=== PATIENT | female | born 1955 | race Caucasian/White ===

== ENCOUNTER → 2016-09-08 | Outpatient (CLI) | payer OTHER ==
[~2016-09-08] MED LIST: ACET500T76 PO; ERGO500017 PO; FEBU80TA2 PO; FLUT1DIS3 INH; FURO-93 PO; GABA600T2 PO; LEVO100T5 PO; LEVO75TA5 PO; LORA10TA75 PO; MAGN400T7 PO; METF500T4 PO; MONT10TA6 PO; MULT-658 PO; OXYC10TA6 PO; OXYC15TA75 PO; OXYC30TA66 PO; PANT40TA3 PO; RIZA5TAB2 PO; SERT50TA PO; SOTA80TA PO; SPIR100T PO; WARF2.5T PO; WARF2TAB7 PO
== END | disposition home or self-care (01) ==
LOC: CVU 14:57
PROVIDERS: ATTEND Physician Assistant Medical
DX: I50.30 Unspecified diastolic (congestive) heart failure (principal); I34.0 Nonrheumatic mitral (valve) insufficiency; I48.91 Unspecified atrial fibrillation; I35.0 Nonrheumatic aortic (valve) stenosis; J45.909 Unspecified asthma, uncomplicated; E11.9 Type 2 diabetes mellitus without complications; I51.7 Cardiomegaly
CPT/HCPCS: 93306

== ENCOUNTER 2016-12-01 15:22 | Emergency (ER) | payer OTHER ==
[~2016-12-01] VITALS: Ht 172.7 cm; Wt 125.0 kg
[~2016-12-01 15:22] MED LIST changes: +ACET500T71 PO; -ACET500T76 PO
[2016-12-01] MEDS ORDERED: ASPIRIN 81 MG TABLET CHEW ONE (15:52)
[2016-12-01] MEDS ORDERED: DILTIAZEM 5 MG/ML, 5ML ONE (15:52)
[2016-12-01] MEDS ORDERED: ASPIRIN 81 MG TABLET CHEW PO ONE (16:00)
[2016-12-01] MEDS ORDERED: DILTIAZEM 5 MG/ML, 5ML IVPush ONE (16:00)
[2016-12-01 16:04] LABS: BLOOD UREA NITROGEN 10 mg/dL (7-18)
[2016-12-01 16:10] LABS: IS PT STATUS REG ER OR PRE ER? YES
[2016-12-01] MEDS ORDERED: PROPOFOL 10 MG/ML, 20ML ONE (16:11)
[2016-12-01] MEDS ORDERED: LORazepam 2 MG/ML, 1ML ONE (16:17)
[2016-12-01] MEDS ORDERED: PROPOFOL 10 MG/ML, 20ML IVPush ONE (16:30)
[2016-12-01] MEDS ORDERED: LORazepam 2 MG/ML, 1ML IVPush ONE (16:30)
[2016-12-01 17:58] VITALS: BP 108/57
== END 2016-12-01 18:01 | disposition home or self-care (01) ==
LOC: ED 17:58
DX: I48.92 Unspecified atrial flutter (principal); E87.1 Hypo-osmolality and hyponatremia; I48.91 Unspecified atrial fibrillation; R73.9 Hyperglycemia, unspecified
CPT/HCPCS: 36415; 71010; 80048; 82040; 83735; 84484; 85025; 85610; 93005; 99152; 99153; J2704

== ENCOUNTER → 2016-12-22 | Outpatient (CLI) | payer OTHER ==
[~2016-12-22] MED LIST changes: +FLUT1AER INH; +INSU100C SQ-INSULIN; +INSU100V8 SQ; +LEVA15HF2 INH; +OMNIPAQUE 350 MG/ML, 150 ML BOTTLE ONE
== END | disposition home or self-care (01) ==
LOC: CFH 14:18
PROVIDERS: ATTEND Internal Medicine Cardiovascular Disease
DX: I48.91 Unspecified atrial fibrillation (principal); J81.1 Chronic pulmonary edema; I51.7 Cardiomegaly; I87.8 Other specified disorders of veins
CPT/HCPCS: 71020; 75572; Q9967

== ENCOUNTER 2016-12-23 06:51 | Observation (INO) | payer OTHER ==
[2016-12-22 13:13] VITALS: BP 129/75
[2016-12-22 14:00] LABS: HEMATOCRIT 38.8 % (34.6-47.8); HEMOGLOBIN 11.9 g/dL (11.7-16.4); WHITE BLOOD COUNT 10.4 x10^3/uL (3.4-10)
[2016-12-22 14:11] LABS: ASPARTATE AMINO TRANSFERASE 65 U/L (15-37); BLOOD UREA NITROGEN 8 mg/dL (7-18)
[~2016-12-23] VITALS: Ht 172.7 cm; Wt 126.8 kg
[~2016-12-23 06:51] MED LIST changes: -FLUT1AER INH; -INSU100C SQ-INSULIN; -INSU100V8 SQ; -LEVA15HF2 INH; -OMNIPAQUE 350 MG/ML, 150 ML BOTTLE ONE
[2016-12-23] MEDS ORDERED: SODIUM CHLORIDE 0.9% 1,000 ML IV SCH (07:15)
[2016-12-23] MEDS ORDERED: SODIUM CHLORIDE 0.9% 1,000 ML IV ONE (07:30)
[2016-12-23] MEDS ORDERED: FLUT1AER INH (07:52)
[2016-12-23] MEDS ORDERED: FENTANYL PF 250 MCG/5ML ONE ×2 (07:52→08:42)
[2016-12-23] MEDS ORDERED: LEVA15HF2 INH (07:52)
[2016-12-23] MEDS ORDERED: MIDAZOLAM 1 MG/ML, 5ML ONE (07:53)
[2016-12-23] MEDS ORDERED: LIDOCAINE 2%, 20ML ONE (07:53)
[2016-12-23] MEDS ORDERED: INSU100V8 SQ (07:54)
[2016-12-23] MEDS ORDERED: INSU100C SQ-INSULIN (07:54)
[2016-12-23] MEDS ORDERED: DEXAMETHASONE 4 MG/ML, 5ML ONE (07:59)
[2016-12-23] MEDS ORDERED: SUCCINYLCHOLINE 20 MG/ML, 10ML ONE (07:59)
[2016-12-23] MEDS ORDERED: ONDANSETRON 2MG/ML, 2ML ONE (07:59)
[2016-12-23] MEDS ORDERED: PROPOFOL 10 MG/ML, 20ML ONE (07:59)
[2016-12-23] MEDS ORDERED: ALBUTEROL SULFATE 200 PUFFS/8.5 GR INH ONE (07:59)
[2016-12-23] MEDS ORDERED: ROCURONIUM 10 MG/ML ONE (07:59)
[2016-12-23] MEDS ORDERED: PHENYLEPHRINE 10 MG/ML ONE (07:59)
[2016-12-23] MEDS ORDERED: PROTAMINE SULFATE 10 MG/ML, 5ML ONE (11:01)
[2016-12-23] MEDS ORDERED: ACETAMINOPHEN 500 MG TABLET PO SCH (11:30)
[2016-12-23] MEDS ORDERED: ALBUTEROL SULFATE 2.5 MG/3 ML NPPB PRN ×2 (11:30→12:00)
[2016-12-23] MEDS ORDERED: LORATADINE 10 MG TABLET PO PRN (11:30)
[2016-12-23] MEDS ORDERED: RIZATRIPTAN BENZOATE 5 MG PO SCH (11:30)
[2016-12-23] MEDS ORDERED: ACETAMINOPHEN 325 MG TABLET PO PRN ×2 (11:30→12:00)
[2016-12-23] MEDS ORDERED: ZOLPIDEM 5MG TABLET PO PRN (11:30)
[2016-12-23] MEDS ORDERED: ERGOCALCIFEROL 50,000 UNIT CAPSULE PO SCH (11:30)
[2016-12-23] MEDS ORDERED: OXYcodone 5 MG/5 ML ORAL.SOL UDC PO PRN (12:00)
[2016-12-23] MEDS ORDERED: MIDAZOLAM 1 MG/ML, 2ML IV PRN (12:00)
[2016-12-23] MEDS ORDERED: hydrALAzine 20 MG/ML, 1ML IV PRN (12:00)
[2016-12-23] MEDS ORDERED: FENTANYL PF 100 MCG/2ML IV PRN (12:00)
[2016-12-23] MEDS ORDERED: MEPERIDINE/PF 25MG/0.5ML IVPush PRN (12:00)
[2016-12-23] MEDS ORDERED: ONDANSETRON 2MG/ML, 2ML IVPush PRN (12:00)
[2016-12-23] MEDS ORDERED: LABETALOL 5MG/ML, 20ML IV PRN (12:00)
[2016-12-23] MEDS ORDERED: PROMETHAZINE 25 MG/ML, 1ML IV PRN (12:00)
[2016-12-23] MEDS ORDERED: HYDROmorphone 1 MG/ML, 1ML ONE (13:01)
[2016-12-23] MEDS ORDERED: OXYcodone 5 MG/5 ML ORAL.SOL UDC ONE (13:01)
[2016-12-23] MEDS ORDERED: ACETAMINOPHEN 325 MG TABLET ONE (13:01)
[2016-12-23] MEDS: HYDROmorphone 1 MG/ML, 1ML IV PRN ×2 (13:10→13:19)
[2016-12-23] MEDS ORDERED: WARFARIN 5 MG TABLET PO-COUM ONE (14:00)
[2016-12-23] MEDS ORDERED: INSULIN ASPART 100 UNITS/ML, PEN SQ-INSULIN SCH (16:00)
[2016-12-23 20:55] VITALS: BP 99/65
[2016-12-23] MEDS ORDERED: WARFARIN 2 MG TABLET PO-COUM SCH (21:00)
[2016-12-23] MEDS: INSULIN DETEMIR 100 UNITS/ML, PEN SQ-INSULIN SCH ×2 (21:00→22:08)
[2016-12-23] MEDS ORDERED: PANTOPROZOLE 40MG TABLET PO SCH (21:00)
[2016-12-23] MEDS ORDERED: FLUTICASONE/VILANTEROL 100-25MCG/INH INH SCH (21:00)
[2016-12-23] MEDS ORDERED: FEBUXOSTAT 80 MG HOMEMEDPO SCH (21:00)
[2016-12-23] MEDS ORDERED: MONTELUKAST 10 MG TABLET PO SCH (21:00)
[2016-12-23] MEDS: metFORMIN 500 MG TABLET PO SCH (22:04)
[2016-12-23] MEDS: GABAPENTIN 300 MG CAPSULE PO SCH (22:13)
[2016-12-23] MEDS: OXYcodone IR 5MG TABLET PO PRN (22:46)
[2016-12-23] MEDS: INSULIN ASPART 100 UNITS/ML, PEN SQ-INSULIN SCH (22:46)
[2016-12-24 02:35] VITALS: BP 107/70
[2016-12-24] MEDS: OXYcodone IR 5MG TABLET PO PRN (04:54)
[2016-12-24 07:25] VITALS: BP 100/64
[2016-12-24] MEDS ORDERED: MULTIVITAMIN 1 TABLET PO SCH (09:00)
[2016-12-24] MEDS ORDERED: FLUTICASONE/VILANTEROL 100-25MCG/INH INH SCH (09:00)
[2016-12-24] MEDS ORDERED: LEVOTHYROXINE 100 MCG TABLET PO SCH (09:00)
[2016-12-24] MEDS ORDERED: FUROSEMIDE 20 MG TABLET PO SCH (09:00)
[2016-12-24] MEDS ORDERED: MAGNESIUM OXIDE 400 MG TABLET PO SCH (09:00)
[2016-12-24] MEDS ORDERED: SPIRONOLACTONE 100 MG TABLET PO SCH (09:00)
[2016-12-24] MEDS: metFORMIN 500 MG TABLET PO SCH (09:04)
[2016-12-24] MEDS: GABAPENTIN 300 MG CAPSULE PO SCH (09:06)
[2016-12-24] MEDS: INSULIN ASPART 100 UNITS/ML, PEN SQ-INSULIN SCH (09:07)
== END 2016-12-24 12:15 | disposition home or self-care (01) ==
LOC: CACL 06:51 → ORIP 11:19 → 5SO 14:15
PROVIDERS: ADMIT Internal Medicine Cardiovascular Disease; ATTEND Internal Medicine Cardiovascular Disease
DX: I48.91 Unspecified atrial fibrillation (principal); I48.92 Unspecified atrial flutter
CPT/HCPCS: 36415; 80053; 82962; 85025; 85610; 85730; 93005; 93308; 93312; 93321; 93325; 93613; 93624; 93655; 93656; 93662; 96372; C1730; C1731; C1732; C1766; C1893; C1894; G0378; J0330; J1100; J1170; J1815; J2250; J2370; J2405; J2704; J2720; J3010; J3490

== ENCOUNTER → 2017-12-08 | Outpatient (CLI) | payer OTHER ==
[~2017-12-08] MED LIST changes: +FLUT1AER INH; +INSU100C SQ-INSULIN; +INSU100V8 SQ; +LEVA15HF4 INH; -METF500T4 PO; +METF500T5 PO; +REGADENOSON 0.4 MG/5 ML SYRINGE ONE; -WARF2TAB7 PO; +WARF2TAB99 PO
== END | disposition home or self-care (01) ==
LOC: CFH 12:28
PROVIDERS: ATTEND Internal Medicine Cardiovascular Disease
DX: I20.9 Angina pectoris, unspecified (principal); I45.10 Unspecified right bundle-branch block
CPT/HCPCS: 78452; A9502; C9898; J2785

== ENCOUNTER 2018-01-24 22:05 | Inpatient (IN) | payer OTHER ==
[~2018-01-24] VITALS: Ht 172.7 cm; Wt 146.0 kg
[~2018-01-24 22:05] MED LIST changes: +METF500T17 PO; -METF500T5 PO; -REGADENOSON 0.4 MG/5 ML SYRINGE ONE
[2018-01-24 22:42] LABS: MEAN CORPUSCULAR HEMOGLOBIN 20.9 pg (27.0-34.8); MEAN CORPUSCULAR HGB CONC 30.6 g/dL (32.4-35.8); MEAN CORPUSCULAR VOLUME 68.3 fL (80-100); MEAN PLATELET VOLUME 8.2 fL (7.4-10.4); PLATELET COUNT 369 x10^3/uL (130-400); RED BLOOD COUNT 3.56 x10^6/uL (3.82-5.3); RED CELL DISTRIBUTION WIDTH 23.1 % (9.6-15.2)
[2018-01-24 22:51] LABS: INTERNATIONAL NORMALIZED RATIO 2.63 (0.93-1.1); PROTHROMBIN TIME 26.8 Seconds (9.6-11.5)
[2018-01-24 22:59] LABS: BASOPHILS # (AUTO) 0.14 x10^3/uL (0-0.1); BASOPHILS % (AUTO) 2 % (0-1); EOSINOPHILS # (AUTO) 0.09 x10^3/uL (0-0.4); EOSINOPHILS % (AUTO) 1 % (1-7); LYMPHOCYTES % (AUTO) 20 % (22-44); MD SCAN; MONOCYTES # (AUTO) 0.68 x10^3/uL (0.2-0.8); MONOCYTES % (AUTO) 9 % (2-9); NEUTROPHILS # (AUTO) 5.03 x10^3/uL (1.8-6.8); NEUTROPHILS % (AUTO) 68 % (42-75)
[2018-01-24] MEDS ORDERED: CHOL100015 PO (23:04)
[2018-01-24] MEDS ORDERED: METF500T17 PO (23:04)
[2018-01-24] MEDS ORDERED: WARF2.5T PO (23:04)
[2018-01-24] MEDS ORDERED: BREO (23:04)
[2018-01-24] MEDS ORDERED: OXYCODONE PO ×2 (23:04)
[2018-01-24] MEDS ORDERED: RIZA10TA20 PO (23:04)
[2018-01-24] MEDS ORDERED: TRESIBA (23:04)
[2018-01-24] MEDS ORDERED: LEVA15HF4 INH (23:04)
[2018-01-24] MEDS ORDERED: NOVALOG SQ (23:04)
[2018-01-24] MEDS ORDERED: PANT40TA3 PO (23:04)
[2018-01-24] MEDS ORDERED: MONT10TA6 PO (23:04)
[2018-01-24] MEDS ORDERED: CLON0.5T11 PO (23:04)
[2018-01-24] MEDS ORDERED: LEVO112T4 PO (23:04)
[2018-01-24] MEDS ORDERED: PROM25SU34 PO (23:04)
[2018-01-24] MEDS ORDERED: GABA600T2 PO (23:04)
[2018-01-24] MEDS ORDERED: FEBU80TA2 PO (23:04)
[2018-01-24] MEDS ORDERED: ASPIRIN 325 MG TABLET PO STA (23:22)
[2018-01-25] VITALS (15 sets, daily range): BP systolic 80–115; BP diastolic 44–70
[2018-01-25] MEDS ORDERED: POLYETHYLENE GLYCOL 17 GM PACKET PO PRN (00:30)
[2018-01-25] MEDS: INSULIN GLARGINE 100 UNITS/ML, PEN SQ-INSULIN SCH ×2 (00:30→20:12)
[2018-01-25] MEDS ORDERED: ONDANSETRON 4 MG TABLET PO PRN (00:30)
[2018-01-25] MEDS ORDERED: TEMPLATE NON-FORMULARY MED. (Levalbuterol Tartrate** (Xopenex Hfa**) 2 PUFF) INH PRN (00:30)
[2018-01-25] MEDS ORDERED: BISACODYL 10 MG SUPP PR PRN (00:30)
[2018-01-25] MEDS ORDERED: ACETAMINOPHEN 325 MG TABLET PO PRN (00:30)
[2018-01-25] MEDS ORDERED: LORATADINE 10 MG TABLET PO PRN (00:30)
[2018-01-25] MEDS: ERGOCALCIFEROL 50,000 UNIT CAPSULE PO SCH (00:30)
[2018-01-25] MEDS ORDERED: ALBUTEROL SULFATE 2.5 MG/3 ML NPPB PRN (01:00)
[2018-01-25] MEDS: INSULIN LISPRO 100 UNITS/ML, PEN SQ-INSULIN SCH ×5 (01:00→20:12)
[2018-01-25] MEDS: CLINDAMYCIN PMX 600MG/50ML 50 ML IV SCH ×3 (01:27→16:27)
[2018-01-25] MEDS: OXYcodone IR 5MG TABLET PO PRN ×5 (01:27→20:38)
[2018-01-25] MEDS: FEBUXOSTAT 40 MG TABLET PO SCH ×2 (01:43→20:09)
[2018-01-25] MEDS: GABAPENTIN 300 MG CAPSULE PO SCH ×4 (01:45→20:12)
[2018-01-25] MEDS: MONTELUKAST 10 MG TABLET PO SCH ×2 (01:45→20:12)
[2018-01-25] MEDS: PANTOPROZOLE 40MG TABLET PO SCH ×2 (01:45→20:12)
[2018-01-25] MEDS: WARFARIN 2 MG TABLET PO-COUM SCH ×2 (01:46→20:11)
[2018-01-25] MEDS ORDERED: OXYcodone IR 30 MG TABLET PO ONE (02:30)
[2018-01-25 03:02] LABS: MEAN CORPUSCULAR HEMOGLOBIN 21.6 pg (27.0-34.8); MEAN CORPUSCULAR HGB CONC 31.5 g/dL (32.4-35.8); MEAN CORPUSCULAR VOLUME 68.4 fL (80-100); MEAN PLATELET VOLUME 8.1 fL (7.4-10.4); PLATELET COUNT 362 x10^3/uL (130-400); RED BLOOD COUNT 3.43 x10^6/uL (3.82-5.3); RED CELL DISTRIBUTION WIDTH 23.4 % (9.6-15.2)
[2018-01-25 03:09] LABS: ALANINE AMINOTRANSFERASE 19 U/L (12-78); ALBUMIN 2.5 g/dL (3.4-5.0); ANION GAP 3 mmol/L (5-15); CHLORIDE 99 mmol/L (98-107); CREATININE 0.83 mg/dL (0.55-1.02)
[2018-01-25 03:11] LABS: ALKALINE PHOSPHATASE 109 U/L (45-117); BILIRUBIN,TOTAL 0.8 mg/dL (0.2-1.0); TOTAL PROTEIN 6.7 g/dL (6.4-8.2)
[2018-01-25 03:14] LABS: HEMOGLOBIN A1C 7.5 % (4.2-6.3)
[2018-01-25 03:32] LABS: BASOPHILS # (AUTO) 0.02 x10^3/uL (0-0.1); BASOPHILS % (AUTO) 0 % (0-1); EOSINOPHILS # (AUTO) 0.22 x10^3/uL (0-0.4); EOSINOPHILS % (AUTO) 3 % (1-7); LYMPHOCYTES # (AUTO) 1.48 x10^3/uL (1-3.4); LYMPHOCYTES % (AUTO) 23 % (22-44); MD SCAN; MONOCYTES # (AUTO) 0.58 x10^3/uL (0.2-0.8); MONOCYTES % (AUTO) 9 % (2-9); NEUTROPHILS # (AUTO) 4.18 x10^3/uL (1.8-6.8); NEUTROPHILS % (AUTO) 65 % (42-75)
[2018-01-25] MEDS: PROMETHAZINE 25 MG SUPP PR SCH (09:00)
[2018-01-25] MEDS: MAGNESIUM OXIDE 400 MG TABLET PO SCH (09:00)
[2018-01-25] MEDS ORDERED: TEMPLATE NON-FORMULARY MED. (Fluticasone/Salmeterol** (Advair 250-50 Diskus**) 1 PUFF) INH SCH (09:00)
[2018-01-25] MEDS: SPIRONOLACTONE 100 MG TABLET PO SCH (09:54)
[2018-01-25] MEDS: metFORMIN 500 MG TABLET PO SCH ×2 (09:54→20:12)
[2018-01-25] MEDS: FUROSEMIDE 20 MG TABLET PO SCH (09:54)
[2018-01-25] MEDS: MULTIVITAMIN 1 TABLET PO SCH (09:55)
[2018-01-25] MEDS: LEVOTHYROXINE 112 MCG TABLET PO SCH (09:55)
[2018-01-25] MEDS: ASPIRIN 81 MG TABLET CHEW PO/NG SCH (09:56)
[2018-01-25] MEDS ORDERED: ACETAMINOPHEN 325 MG TABLET PO ONE (10:30)
[2018-01-25] MEDS ORDERED: DIPHENHYDRAMINE 12.5MG/5ML, 10ML UDC PO ONE (10:30)
[2018-01-25] MEDS: FLUTICASONE/VILANTEROL 100-25MCG/INH INH SCH (10:55)
[2018-01-25] MEDS: RIZATRIPTAN 10MG TABLET PO SCH (10:56)
[2018-01-26 00:10] VITALS: BP 117/63
[2018-01-26] MEDS: CLINDAMYCIN PMX 600MG/50ML 50 ML IV SCH ×2 (00:20→08:03)
[2018-01-26] MEDS: OXYcodone IR 5MG TABLET PO PRN ×4 (00:20→12:22)
[2018-01-26 05:56] LABS: CHOL/HDL RATIO 6.5; LDL/HDL RATIO 4.3 (0.5-3.0)
[2018-01-26 07:11] VITALS: BP 125/69
[2018-01-26] MEDS: INSULIN LISPRO 100 UNITS/ML, PEN SQ-INSULIN SCH ×2 (08:01→11:30)
[2018-01-26] MEDS: FLUTICASONE/VILANTEROL 100-25MCG/INH INH SCH (08:03)
[2018-01-26] MEDS: ERGOCALCIFEROL 50,000 UNIT CAPSULE PO SCH (08:04)
[2018-01-26] MEDS: MULTIVITAMIN 1 TABLET PO SCH (08:05)
[2018-01-26] MEDS: LEVOTHYROXINE 112 MCG TABLET PO SCH (08:05)
[2018-01-26] MEDS: metFORMIN 500 MG TABLET PO SCH (08:05)
[2018-01-26] MEDS: SPIRONOLACTONE 100 MG TABLET PO SCH (08:05)
[2018-01-26] MEDS: RIZATRIPTAN 10MG TABLET PO SCH (08:06)
[2018-01-26] MEDS: MAGNESIUM OXIDE 400 MG TABLET PO SCH (08:06)
[2018-01-26] MEDS: ASPIRIN 81 MG TABLET CHEW PO/NG SCH (08:07)
[2018-01-26] MEDS: GABAPENTIN 300 MG CAPSULE PO SCH (08:07)
[2018-01-26] MEDS: FUROSEMIDE 20 MG TABLET PO SCH (08:08)
[2018-01-26] MEDS: PROMETHAZINE 25 MG SUPP PR SCH (08:08)
[2018-01-26 10:47] LABS: INTERNATIONAL NORMALIZED RATIO 2.56 (0.93-1.1); PROTHROMBIN TIME 26.1 Seconds (9.6-11.5)
[2018-01-26] MEDS ORDERED: CEFD300C37 PO (11:00)
[2018-01-26 14:24] VITALS: BP 97/59
== END 2018-01-26 15:51 | disposition home or self-care (01) | DRG 69 ==
LOC: ED 23:01 → EDIP 23:12 → 4WST 01-25 00:18
PROVIDERS: ADMIT Family Medicine; ATTEND Family Medicine
PROC: 30233N1 Transfusion of Nonautologous Red Blood Cells into Peripheral Vein, Percutaneous Approach (ICD-10-PCS; principal; 2018-01-25)
PROC: 5A09357 Assistance with Respiratory Ventilation, Less than 24 Consecutive Hours, Continuous Positive Airway Pressure (ICD-10-PCS; 2018-01-25)
DX: G45.9 Transient cerebral ischemic attack, unspecified (principal); L03.116 Cellulitis of left lower limb; Z68.42 Body mass index [BMI] 45.0-49.9, adult; I50.30 Unspecified diastolic (congestive) heart failure; D68.69 Other thrombophilia; G81.94 Hemiplegia, unspecified affecting left nondominant side; D63.8 Anemia in other chronic diseases classified elsewhere; E03.9 Hypothyroidism, unspecified; E11.42 Type 2 diabetes mellitus with diabetic polyneuropathy; E55.9 Vitamin D deficiency, unspecified; E66.01 Morbid (severe) obesity due to excess calories; G47.33 Obstructive sleep apnea (adult) (pediatric); I48.91 Unspecified atrial fibrillation; K21.9 Gastro-esophageal reflux disease without esophagitis; J45.909 Unspecified asthma, uncomplicated; G56.02 Carpal tunnel syndrome, left upper limb; M19.90 Unspecified osteoarthritis, unspecified site; R47.81 Slurred speech; D50.9 Iron deficiency anemia, unspecified; M79.7 Fibromyalgia; Z96.653 Presence of artificial knee joint, bilateral; M81.0 Age-related osteoporosis without current pathological fracture; R09.02 Hypoxemia; Z80.6 Family history of leukemia; Z79.4 Long term (current) use of insulin; Z82.49 Family history of ischemic heart disease and other diseases of the circulatory system; Z88.5 Allergy status to narcotic agent; Z88.2 Allergy status to sulfonamides; Z88.7 Allergy status to serum and vaccine; Z88.8 Allergy status to other drugs, medicaments and biological substances; Z91.018 Allergy to other foods; Z82.5 Family history of asthma and other chronic lower respiratory diseases; Z83.3 Family history of diabetes mellitus; Z86.718 Personal history of other venous thrombosis and embolism; Z90.710 Acquired absence of both cervix and uterus
CPT/HCPCS: 36415; 36430; 70450; 70551; 71045; 80047; 80053; 80061; 82728; 82962; 83036; 83540; 83550; 85014; 85018; 85025; 85610; 85730; 86850; 86900; 86923; 93005; 93880; G0378; J1815; P9016

== ENCOUNTER 2018-08-26 15:04 | Inpatient (IN) | payer OTHER ==
[~2018-08-26] VITALS: Ht 172.7 cm; Wt 150.2 kg
[~2018-08-26 15:04] MED LIST changes: +BREO; +CEFD300C37 PO; +CHOL100015 PO; +CLON0.5T11 PO; -GABA600T2 PO; +GABA600T7 PO; +LEVO112T4 PO; +NOVALOG SQ; +OXYCODONE PO; +PROM25SU34 PO; +RIZA10TA20 PO; +TRESIBA
--- NOTE | 2018-08-26 15:17 | NUR ---
PT BIB EMS AFTER MECHANICAL GLF TODAY. AND SON AT BEDSIDE. STATES SHE TRIPPED OVER A RUG AT [facility] AND FELL ONTO LEFT SHOULDER. PAIN TO ANTERIOR LEFT SHOULDER RAD TO LEFT ARM AND LEFT NECK. CMS INTACT. CONNECTED TO MONITORS. VSS. EDMD ASSESSMENT COMPLETE. AWAITING ORDERS.
[2018-08-26] MEDS ORDERED: GABAPENTIN 300 MG CAPSULE PO ONE (15:30)
[2018-08-26] MEDS ORDERED: SODIUM CHLORIDE FLUSH 10ML SYR IVF ONE (15:30)
[2018-08-26] MEDS ORDERED: GABAPENTIN 300 MG CAPSULE ONE (15:32)
--- NOTE | 2018-08-26 16:02 | NUR ---
pts (pain management md) stated that pt needed an extra dose of gabapentin. md notified and orders received. ptmedicated per mar. pt states she needs to go to the restroom. pt currently "woozy" from medications and unsteady on feet. pt offered and declined bedpan until she gets more pain medication. sling being applied at this time. pt yelling out and made tech stop application of sling. pt refusing all interventions until she gets more pain medication. pt requesting and provided with ice packs. md notified. awaiting orders.
[2018-08-26] MEDS ORDERED: HYDROmorphone 1 MG/ML, 1ML VIAL ONE (16:11)
[2018-08-26] MEDS ORDERED: ONDANSETRON 2MG/ML, 2ML ONE (16:11)
[2018-08-26] MEDS ORDERED: PROMETHAZINE 25 MG/ML, 1ML ONE (16:18)
[2018-08-26] MEDS ORDERED: SODIUM CHLORIDE FLUSH 10ML SYR IVF PRN (16:30)
[2018-08-26] MEDS ORDERED: HYDROmorphone 2 MG/ML, 1ML IVPush PRN (16:30)
[2018-08-26] MEDS ORDERED: PROMETHAZINE 25 MG/ML, 1ML IM ONE (16:30)
[2018-08-26] MEDS ORDERED: ONDANSETRON 2MG/ML, 2ML IVPush ONE (16:30)
[2018-08-26 16:31] LABS: BASOPHILS # (AUTO) 0.03 x10^3/uL (0-0.1); BASOPHILS % (AUTO) 0 % (0-1); EOSINOPHILS % (AUTO) 1 % (1-7); LYMPHOCYTES % (AUTO) 16 % (22-44); MD NO; MEAN CORPUSCULAR HEMOGLOBIN 21.4 pg (27.0-34.8); MEAN CORPUSCULAR HGB CONC 30.2 g/dL (32.4-35.8); MEAN CORPUSCULAR VOLUME 70.8 fL (80-100); MEAN PLATELET VOLUME 9.4 fL (7.4-10.4); MONOCYTES # (AUTO) 0.53 x10^3/uL (0.2-0.8); MONOCYTES % (AUTO) 7 % (2-9); NEUTROPHILS # (AUTO) 5.64 x10^3/uL (1.8-6.8); NEUTROPHILS % (AUTO) 75 % (42-75); PLATELET COUNT 225 x10^3/uL (130-400); RED BLOOD COUNT 4.46 x10^6/uL (3.82-5.3); RED CELL DISTRIBUTION WIDTH 21.6 % (9.6-15.2)
--- NOTE | 2018-08-26 16:36 | NUR ---
during medication administration, pt became verbally abusive toward nurse and laboratory aide. pt requested that laboratory aide tighten coban and laboratory aide did as asked two separate times. pt then became upset with this rn, stating "What's your name? As soon as I'm better, I'm gonna punch you in the arm!" pt was told by this rn that threats to staff are unacceptable and will not be tolerated. charge account identification clerk notified and present to speak with pt. pt clearly educated that any threats are unacceptable and any further threats will be handled by security. pt medicated per mar. no further needs at this time. vss. at bedside.
[2018-08-26 16:42] LABS: ALANINE AMINOTRANSFERASE 43 U/L (12-78); ALBUMIN 3.2 g/dL (3.4-5.0); ANION GAP 4 mmol/L (5-15); CALCIUM 8.7 mg/dL (8.5-10.1); CHLORIDE 102 mmol/L (98-107); CREATININE 0.82 mg/dL (0.55-1.02)
[2018-08-26 16:45] LABS: ALKALINE PHOSPHATASE 139 U/L (45-117); BILIRUBIN,TOTAL 0.4 mg/dL (0.2-1.0); TOTAL PROTEIN 7.5 g/dL (6.4-8.2)
[2018-08-26 16:52] LABS: INTERNATIONAL NORMALIZED RATIO 2.41 (0.93-1.1); PROTHROMBIN TIME 24.5 Seconds (9.6-11.5)
[2018-08-26] MEDS ORDERED: HYDROmorphone 1 MG/ML, 1ML INJ IM PRN (17:00)
[2018-08-26] MEDS ORDERED: ERGOCALCIFEROL 50,000 UNIT CAPSULE PO SCH (17:00)
[2018-08-26] MEDS: ACETAMINOPHEN 325 MG TABLET PO SCH (17:00)
--- NOTE | 2018-08-26 17:18 | NUR ---
pt refusing more than 2L o2. pt's family has brought bipap to improve sats. report to [facility]. pt ready for transport.
[2018-08-26] MEDS: KETOROLAC 30 MG/1 ML IM PRN (18:19)
[2018-08-26] MEDS: SODIUM CHLORIDE 0.9% 1,000 ML IV SCH (18:32)
[2018-08-26 18:39] LABS: HEMOGLOBIN A1C 9.3 % (4.2-6.3)
[2018-08-26] MEDS: OXYcodone IR 5MG TABLET PO PRN (19:29)
[2018-08-26] MEDS ORDERED: MONTELUKAST 10 MG TABLET PO SCH (21:00)
[2018-08-26] MEDS ORDERED: WARFARIN 2 MG TABLET PO-COUM SCH (21:00)
[2018-08-26] MEDS ORDERED: INSULIN LISPRO 100 UNITS/ML, PEN SQ-INSULIN SCH (21:00)
[2018-08-26] MEDS ORDERED: PANTOPROZOLE 40MG TABLET PO SCH (21:00)
[2018-08-26] MEDS ORDERED: WARFARIN 2.5 MG TABLET PO-COUM SCH (21:00)
[2018-08-26] MEDS ORDERED: SENNA/DOCUSATE TABLET PO SCH (21:00)
[2018-08-26] MEDS ORDERED: FEBUXOSTAT 40 MG TABLET PO SCH (21:00)
[2018-08-26] MEDS ORDERED: WARFARIN 5 MG TABLET PO-COUM ONE (21:23)
[2018-08-26 21:41] VITALS: BP 96/68
[2018-08-26] MEDS: OXYcodone IR 5MG TABLET PO SCH (21:59)
[2018-08-26] MEDS: GABAPENTIN 300 MG CAPSULE PO SCH (22:00)
[2018-08-26] MEDS: LACTOBACILLUS CHEW TABLET PO SCH (22:01)
[2018-08-26] MEDS: INSULIN LISPRO 100 UNITS/ML, PEN SQ-INSULIN SCH (22:03)
[2018-08-27] MEDS: KETOROLAC 30 MG/1 ML IM PRN ×2 (00:21→14:43)
[2018-08-27] MEDS: ACETAMINOPHEN 325 MG TABLET PO SCH ×3 (00:22→11:40)
[2018-08-27 01:57] VITALS: BP 113/59
[2018-08-27] MEDS: SODIUM CHLORIDE 0.9% 1,000 ML IV SCH (05:03)
[2018-08-27] MEDS: OXYcodone IR 5MG TABLET PO PRN ×2 (05:04→14:44)
[2018-08-27 06:40] LABS: ANION GAP 6 mmol/L (5-15); CALCIUM 8.2 mg/dL (8.5-10.1); CHLORIDE 103 mmol/L (98-107)
[2018-08-27 06:46] LABS: % IRON SATURATION 6 % (20-55); CREATININE 0.93 mg/dL (0.55-1.02); IRON LEVEL 25 mcg/dL (50-170); TOTAL IRON BINDING CAPACITY 405 mcg/dL (250-450)
[2018-08-27 06:55] VITALS: BP 95/58
[2018-08-27 07:11] LABS: BASOPHILS # (AUTO) 0.02 x10^3/uL (0-0.1); BASOPHILS % (AUTO) 0 % (0-1); EOSINOPHILS # (AUTO) 0.17 x10^3/uL (0-0.4); EOSINOPHILS % (AUTO) 3 % (1-7); LYMPHOCYTES # (AUTO) 1.95 x10^3/uL (1-3.4); LYMPHOCYTES % (AUTO) 28 % (22-44); MD SCAN; MEAN CORPUSCULAR HEMOGLOBIN 21.9 pg (27.0-34.8); MEAN CORPUSCULAR HGB CONC 30.9 g/dL (32.4-35.8); MEAN PLATELET VOLUME 9.5 fL (7.4-10.4); MONOCYTES # (AUTO) 0.61 x10^3/uL (0.2-0.8); MONOCYTES % (AUTO) 9 % (2-9); NEUTROPHILS # (AUTO) 4.32 x10^3/uL (1.8-6.8); NEUTROPHILS % (AUTO) 61 % (42-75); PLATELET COUNT 196 x10^3/uL (130-400); RED BLOOD COUNT 4.05 x10^6/uL (3.82-5.3); RED CELL DISTRIBUTION WIDTH 22.4 % (9.6-15.2)
[2018-08-27] MEDS: LACTOBACILLUS CHEW TABLET PO SCH (08:05)
[2018-08-27] MEDS: INSULIN LISPRO 100 UNITS/ML, PEN SQ-INSULIN SCH ×2 (08:05→11:54)
[2018-08-27] MEDS: GABAPENTIN 300 MG CAPSULE PO SCH (08:15)
[2018-08-27] MEDS: OXYcodone IR 5MG TABLET PO SCH (08:16)
[2018-08-27] MEDS ORDERED: ALBUTEROL SULFATE 2.5 MG/3 ML HHN SCH ×2 (09:00)
[2018-08-27] MEDS ORDERED: LEVOTHYROXINE 112 MCG TABLET PO SCH (09:00)
[2018-08-27] MEDS ORDERED: MULTIVITAMIN 1 TABLET PO SCH (09:00)
[2018-08-27] MEDS ORDERED: RIZATRIPTAN 10MG TABLET PO SCH (09:00)
[2018-08-27] MEDS ORDERED: TRESIBA HOMEINJ SCH (09:00)
[2018-08-27] MEDS ORDERED: MAGNESIUM OXIDE 400 MG TABLET PO SCH (09:00)
[2018-08-27 10:20] VITALS: BP 101/53
[2018-08-27] MEDS: HYDROmorphone 2 MG/ML, 1ML IM PRN ×2 (10:38→12:01)
[2018-08-27 13:25] VITALS: BP 104/54
[2018-08-28] MEDS ORDERED: ERGOCALCIFEROL 50,000 UNIT CAPSULE PO SCH (09:00)
== END 2018-08-27 16:18 | disposition home or self-care (01) | DRG 563 ==
LOC: ED 16:41 → EDIP 17:17 → 3NE 18:16
PROVIDERS: ADMIT Internal Medicine; ATTEND Internal Medicine
PROC: 5A09357 Assistance with Respiratory Ventilation, Less than 24 Consecutive Hours, Continuous Positive Airway Pressure (ICD-10-PCS; principal; 2018-08-26)
DX: S42.202A Unspecified fracture of upper end of left humerus, initial encounter for closed fracture (principal); D68.51 Activated protein C resistance; D68.59 Other primary thrombophilia; E27.40 Unspecified adrenocortical insufficiency; E87.1 Hypo-osmolality and hyponatremia; G45.9 Transient cerebral ischemic attack, unspecified; D50.9 Iron deficiency anemia, unspecified; S42.92XA Fracture of left shoulder girdle, part unspecified, initial encounter for closed fracture; E03.9 Hypothyroidism, unspecified; E11.40 Type 2 diabetes mellitus with diabetic neuropathy, unspecified; E11.65 Type 2 diabetes mellitus with hyperglycemia; E66.01 Morbid (severe) obesity due to excess calories; G47.33 Obstructive sleep apnea (adult) (pediatric); G89.4 Chronic pain syndrome; I10 Essential (primary) hypertension; I48.91 Unspecified atrial fibrillation; J45.909 Unspecified asthma, uncomplicated; W18.09XA Striking against other object with subsequent fall, initial encounter; K21.9 Gastro-esophageal reflux disease without esophagitis; Z96.653 Presence of artificial knee joint, bilateral; M79.7 Fibromyalgia; M81.0 Age-related osteoporosis without current pathological fracture; Y93.89 Activity, other specified; Y92.89 Other specified places as the place of occurrence of the external cause; Y99.8 Other external cause status; Z79.01 Long term (current) use of anticoagulants; Z80.6 Family history of leukemia; Z82.49 Family history of ischemic heart disease and other diseases of the circulatory system; Z82.5 Family history of asthma and other chronic lower respiratory diseases; Z83.3 Family history of diabetes mellitus; Z86.73 Personal history of transient ischemic attack (TIA), and cerebral infarction without residual deficits; Z90.710 Acquired absence of both cervix and uterus; Z90.49 Acquired absence of other specified parts of digestive tract; Z88.0 Allergy status to penicillin; Z88.2 Allergy status to sulfonamides; Z88.8 Allergy status to other drugs, medicaments and biological substances; Z88.7 Allergy status to serum and vaccine
CPT/HCPCS: 36415; 71045; 80048; 80053; 82728; 82962; 83036; 83540; 83550; 85025; 85610; 85730; 96374; 99285; G0378; J1170; J1885; J2405; J1815; J7030